=== PATIENT | female | born 1940 | race Caucasian/White ===

== ENCOUNTER 2017-01-04 12:37 | Emergency (ER) | payer MEDICARE, OTHER ==
[~2017-01-04 12:37] MED LIST: ACET500CAP PO; ATV.5 PO; C25 PO; EXELON3 PO; HUMALOG SC; KCL20UDL PO; LEVAQUIN5T PO; LEXAPRO20 PO; LIPITOR20 PO; MAX25 PO; MAXITOINT OPH; NEXIUM40 PO; NORCO1 TA1 PO; NYS500UDL PO; PROVENTSOL INH; REGL PO
[2017-04-06] MEDS ORDERED: NORCO1 TA1 PO (10:03)
[2017-04-06] MEDS ORDERED: CELEXA10 PO (10:03)
[2017-04-06] MEDS ORDERED: REGL PO (10:04)
[2017-04-06] MEDS ORDERED: PRILO PO (10:04)
[2017-04-06] MEDS ORDERED: FLEXERIL5 MG PO (10:05)
[2017-04-06] MEDS ORDERED: BISR PR (10:05)
[2017-04-06] MEDS ORDERED: MOMUD PO (10:06)
[2017-04-06] MEDS ORDERED: GENASYME40 MG/0.6 PO (10:07)
== END 2017-01-04 14:51 | disposition home or self-care (01) ==
LOC: ER 12:37
DX: Z43.1 Encounter for attention to gastrostomy (principal); I10 Essential (primary) hypertension; Z86.73 Personal history of transient ischemic attack (TIA), and cerebral infarction without residual deficits; F32.9 Major depressive disorder, single episode, unspecified; E11.9 Type 2 diabetes mellitus without complications; Z88.2 Allergy status to sulfonamides; Z79.899 Other long term (current) drug therapy; Z79.4 Long term (current) use of insulin
CPT/HCPCS: 49465; 99283

== ENCOUNTER 2017-01-20 16:08 | Inpatient (IN) | payer MEDICARE, OTHER ==
--- NOTE | ~2017-01-20 | HP ---
History And Physical [id number] [place]. [address] NAME: NELIDA COSME : 38 STATUS : ADM IN [facility]#: [id number] AGE: 76 ADM/REG DATE : 01/20/17 MR#: [id number] REPORT SERV DATE: 01/21/17 DICTATED BY: LOREN CHRISTIE DATE: 01/20/17 REPORT STATUS : Draft TRANSCRIBED BY: SHAMAR DATE: 01/20/17 DATE OF ADMISSION: 01/20/2017 CHIEF COMPLAINT: Pneumonia. HISTORY OF PRESENT ILLNESS: The patient is a 76-year-old female, longterm resident from [facility] secondary to prior history of stroke with additional history of atrial fibrillation on anticoagulation, diabetes insulin dependent, CVA history with right-sided hemiparesis, required feeding tube, COPD, dyslipidemia, hypertension, breast cancer history, nonvocal status who is brought in after concern for possible pneumonia and progressive worsening of recent pneumonia, possible aspiration, recent worsening pneumonia. The patient has been apparently getting progressively worse over last three to four days with intermittent difficulty with respirations that initially was mild but quite severe at this point, as the patient was tachypneic in the 40s, heart rate in the 100 plus and was fairly unresponsive. The patient has not expressed any pain or difficulty or discomfort but does have grimacing components with obvious shortness of breath. No reported nausea or vomiting, tolerating tube feeds. No fevers have been reported either but has had progressive weakness and decline in functional status. There is no worsening or relieving symptoms except after being placed on BiPAP, the patient appears to be improving mental status. REVIEW OF SYSTEMS: Unable to obtain due to mental status. PAST MEDICAL HISTORY: Obtained from records of insulin-dependent diabetes, atrial fibrillation on anticoagulation, coronary disease with ND, hypertension, hyperlipidemia, COPD, breast cancer, CVA with right-sided hemiparesis, feeding tube following multiple CVAs, longterm dependent, and essentially nonvocal. SOCIAL HISTORY: No reported history of smoking, alcohol, or illicits. Lives at longterm. FAMILY HISTORY: No reported diabetes or hypertension currently. SURGICAL HISTORY: PEG tube placement, prior stents. ALLERGIES: SULFA. HOME MEDICATIONS: Tylenol, Duo-nebs, Lipitor, baclofen, Pulmicort, Rocephin, vitamin D, Maxitrol, Lexapro, Nexium, Ferrex, Clyde, Ativan, Reglan, potassium, Exelon, Maxzide, lidocaine, Biotene, and Coumadin. PHYSICAL EXAMINATION: VITAL SIGNS: The patient's blood pressure 126/68, temperature 98.4, initial pulse 115 down to 78, respirations 38, 40 down to 27, O2 saturations 91% on 15 L currently on BiPAP, maintaining 100%. GENERAL: Elderly frail. History And Physical [address] [address] NAME: NELIDA COSME : 38 STATUS : ADM IN [facility]#: [id number] AGE: 76 ADM/REG DATE : 01/20/17 MR#: [id number] REPORT SERV DATE: 01/21/17 DICTATED BY: LOREN CHRISTIE DATE: 01/20/17 REPORT STATUS : Draft TRANSCRIBED BY: SHAMAR DATE: 01/20/17 EYES: No scleral icterus. ENT: Dry mucous membranes. BiPAP in place. No JVD. RESPIRATORY: Polyphonic breath sounds with decreased lower lung jean-baptiste and rhonchi bilaterally. CV: Regular rate currently. No rubs, no pedal edema. GI: Soft, nontender. Does have G-tube placement. : Deferred. MUSCULOSKELETAL: Does have random leg movements but nonpurposeful at this time due to mental status. SKIN: Warm and dry. Mild tenting. Does have mottling of knees. LYMPH: No cervical lymphadenopathy. HEME: No bleeding or bruising grossly. NEUROLOGIC: Nonverbal, right-sided central paraplegia and lethargic. PSYCH: Unable to assess secondary to mental status changes. DATA: BNP 94.7, WBC count 16.5, H and H 11.8 and 37.9 with MCV 102.4, platelets 397, INR 3.4. Hepatic function panel; sodium 145, potassium 5.3, chloride 104, bicarb 39, BUN creatinine 56 and 1.08, glucose 127, magnesium 3.2, alkaline phosphatase 707, AST ALT 521 and 639, troponin 0.05. Total bilirubin 0.4. Portable chest; stable moderate CHF with pleural effusions and bibasilar consolidation. ABG; pH 7.29, pCO2 of 80, pO2 of 145, bicarb 37.7. EKG; normal sinus rhythm, rate of 87, QTc 415. Again medications reviewed. ASSESSMENT AND PLAN: 1. Bilateral pneumonia. 2. Hypoxic hypercapnic respiratory failure. 3. Atrial fibrillation. 4. Hypertension. 5. CVA with non vocal and bed-bound state chronically. 6. Diabetes type 2. 7. Shock liver. 8. Severe sepsis. 9. Azotemia. 10.DNR status. PLAN: 1. For bilateral pneumonia, has been on Rocephin but clinically continues to decline, possible aspiration component, has been given vanc and Zosyn in the emergency room. We will change to vanc and cefepime per protocol, does additionally have shock liver with tachycardia, tachypnea, SOFA score is approximately 6 with estimated approximate mortality of 33%. Guarded prognosis discussed with family. 2. Hypoxic hypercapnic respiratory failure. BiPAP 4 on 4 off, as needed. Treat History And Physical [address] [address] NAME: NELIDA COSME : 38 STATUS : ADM IN [facility]#: [id number] AGE: 76 ADM/REG DATE : 01/20/17 MR#: [id number] REPORT SERV DATE: 01/21/17 DICTATED BY: LOREN CHRISTIE DATE: 01/20/17 REPORT STATUS : Draft TRANSCRIBED BY: SHAMAR DATE: 01/20/17 underlying pneumonia. Hold tube feeds at this time. Reassess in a.m. for restarting tube feeds. Possible aspiration component. 3. Atrial fibrillation. Monitor, currently in sinus rhythm. 4. Hypertension. Hold medications in the setting of sepsis. 5. CVA history. Nonverbal, bed-bound per floor protocol for barrier protection. 6. Diabetes type 2. Sliding scale insulin. 7. Shock liver. Hold hepatotoxins, treat severe sepsis. 8. Severe sepsis. IV fluids. IV antibiotics. Monitor closely with possible edema on chest x-ray. However, BNP within normal limits. No history of CHF. 9. Azotemia. IV fluids gently. Questions and guarded prognosis discussed with family. The patient has advance directive confirmed DNR, also confirmed with at bedside. DDN/MODL Loren Christie MD / [id number] CC: Dustin Cummings MD
--- NOTE | ~2017-01-20 | DS ---
Discharge Summary [id number] [place]. [address] NAME: NELIDA COSME : 38 STATUS : DIS IN PAT#: [id number] AGE: 76 ADM/REG DATE : 01/20/17 MR#: [id number] REPORT SERV DATE: 01/27/17 DICTATED BY: YOLA QUIJANO DATE: 01/26/17 REPORT STATUS : Draft TRANSCRIBED BY: SHAMAR DATE: 01/26/17 ADMISSION DATE: 01/20/2017 DISCHARGE DATE: 01/26/2017 DISCHARGE DIAGNOSES: 1. Healthcare associated pneumonia. 2. Chronic atrial fibrillation, on chronic anticoagulation with Coumadin. 3. Chronic hypoxic and hypercapnic respiratory failure. 4. History of cerebrovascular accident with residual dysphagia, aphasia, dementia, and right-sided hemiparesis. 5. History of tube feed dependent. 6. Code status, DNR. 7. History of hypertension. 8. History of chronic obstructive pulmonary disease. 9. History of breast cancer. 10.Severe sepsis. DISCHARGE CONDITION: Stable. HISTORY OF PRESENT ILLNESS: Please, for detailed HPI, make reference to Dr. Phil Ibanez's dictation on 01/21/2017. In brief, this is a 76-year-old female, who presented from [facility] to the hospital with complaints of worsening shortness of breath secondary to possible recent worsening pneumonia. At baseline, the patient was not able to give any detailed history due to aphasia secondary to sequelae of remote CVA. HOSPITAL COURSE: 1. Severe sepsis secondary to healthcare-associated pneumonia. On presentation, the [place] [address]. Chest x-ray shows bilateral consolidation. Respiratory rate was in the 20s. The patient was placed on nasal cannula oxygen. Blood cultures were taken. The patient was started on empiric broad-spectrum antibiotics with vancomycin and cefepime. There was also concern for possible aspiration as a contributing factor to the patient's worsening pneumonia. Hence, Flagyl was initially added to the patient's medication. The patient's WBC trended down back to within baseline. IV antibiotics were deescalated. Blood cultures showed no growth. The patient was transitioned from IV broad-spectrum antibiotics to p.o. antibiotics at the time of discharge. The patient was advised to complete a total of 10 days therapy of antibiotics treatment. The patient was discharged home on levofloxacin 750 mg one p.o. daily for additional four days. The patient was advised to continue to follow up at the halfway PCP. 2. Chronic hypoxic respiratory failure by history. The patient visually requires BiPAP intermittently at halfway. The patient's oxygen requirement during the course of admission remained stable. The patient was advised to continue intermittent BiPAP treatment at halfway and continue followup. 3. Chronic atrial fibrillation, on chronic anticoagulation with warfarin. The patient's heart rate remains controlled throughout the course of this admission. Her INR on presentation was noted to be supratherapeutic at 3.4. Coumadin was transiently held. Discharge Summary [id number] [place]. [address] NAME: NELIDA COSME : 38 STATUS : DIS IN PAT#: [id number] AGE: 76 ADM/REG DATE : 01/20/17 MR#: [id number] REPORT SERV DATE: 01/27/17 DICTATED BY: YOLA QUIJANO DATE: 01/26/17 REPORT STATUS : Draft TRANSCRIBED BY: SHAMAR DATE: 01/26/17 The patient's INR trended down to 2.4. Coumadin was recommended. At the time of discharge, the patient's INR was within therapeutic range of 2.2. The patient was advised to continue Coumadin and follow up with PCP for INR monitoring. 4. PEG tube feed dependent. The patient's tube feed was changed from Jevity to Glucerna during the course of this admission. The patient tolerated Glucerna very well. The patient's blood sugar remained stable throughout the course of this admission. The patient was transitioned back to Jevity and was advised to continue Jevity as an outpatient. 5. History of CVA with residual aphasia and dysphagia. The patient was aphasic throughout the course of this admission. Aphasia was due to remote CVA, which is the patient's known baseline. The patient was advised to continue follow up with PCP. DISCHARGE MEDICATIONS: 1. Levofloxacin 750 mg p.o. daily for four days. 2. Lisinopril 20 mg p.o. daily. 3. Maxzide 25/37.5 one p.o. daily. 4. Lorazepam 0.25 mg per PEG tube p.r.n. 5. Reglan 5 mg/5 mL syrup every six hours p.r.n. 6. Nexium 40 mg p.o. daily. 7. Rivastigmine 3 mg via PEG tube daily. 8. Warfarin 3 mg p.o. daily. 9. Budesonide capsule 0.5 mg/2 mL one puff daily. 10.Baclofen 10 mg p.o. p.r.n. 11.Lipitor 20 mg via PEG tube daily. 12.DuoNeb one inhalation p.r.n. DISCHARGE CONDITION: Stable. DISCHARGE DISPOSITION: To [facility]. DISCHARGE ACTIVITIES: As tolerated. Greater than 35 minutes was used to prepare this patient's discharge, reconcile medication, and advise the patient on discharge plan and followup. IOO/MODL Yola Quijano MD / [id number] CC: MD BARBER Leroy
--- NOTE | ~2017-01-20 | IDS ---
Interim Discharge Summary [facility] [address] [place]. [address] NAME: NELIDA COSME : 38 STATUS : ADM IN [facility]#: [id number] AGE: 76 ADM/REG DATE : 01/20/17 MR#: [id number] REPORT SERV DATE: 01/24/17 DICTATED BY: JIA GRACE DATE: 01/24/17 REPORT STATUS : Draft TRANSCRIBED BY: SHAMAR DATE: 01/24/17 ADMISSION DATE: 01/20/2017 DISCHARGE DATE: Date that my colleague will be taking over this patient is 01/25/2017. CONDITION: Condition of the patient is stable. CODE STATUS: This patient is a DNR. DIAGNOSES: So far on this patient include the followin. HCAP or healthcare-associated pneumonia and/or aspiration pneumonia - the patient is on IV cefepime, IV Flagyl and vancomycin and today is day #5 and patient is improving. 2. Chronic atrial fibrillation - the patient is therapeutic on Coumadin as her INR today is 2.8. 3. Chronic hypoxic and hypercapnic respiratory failure - this is stable with supplemental oxygen. 4. Old cerebrovascular accident with dysphagia, aphasia, dementia and right-sided weakness and the patient is bed bound. The patient is a resident of [facility]. The patient is tube feed dependent and has a PEG tube and getting fed with Glucerna via the PEG tube. 5. Her code status again is a DNR. BRIEF HOSPITAL COURSE: Ms. Cosme is a 76-year-old female patient, who was brought in by family from [facility] because of increasing difficulty breathing. She was admitted with a diagnosis of HCAP/aspiration pneumonia and started on IV antibiotics. She was given symptomatic and supportive care and all her regular medications were continued. With this, the patient has somewhat improved and her breathing is a little better. Over the last few days that I have had her, there has not been much change in mental status. The patient is slightly lethargic and mildly confused, but she is able to follow simple verbal commands. This is her baseline. As mentioned above, the patient is bed bound and tube feed dependent and this is all from an old CVA that left her with dysphagia, aphasia, and dementia. The plan on this patient is to transfer her back to [facility] when she improves and finishes her course of antibiotics. I would assume that she will need at least seven days of these IV antibiotics that she is getting. Family is very supportive and this patient will be taken over by my colleague on 01/25/2017. ASIA/SHAMAR Jia Grace M.D. Interim Discharge Summary [address] [address] NAME: NELIDA COSME : 38 STATUS : ADM IN [facility]#: [id number] AGE: 76 ADM/REG DATE : 01/20/17 MR#: [id number] REPORT SERV DATE: 01/24/17 DICTATED BY: JIA GRACE DATE: 01/24/17 REPORT STATUS : Draft TRANSCRIBED BY: SHAMAR DATE: 01/24/17 / [id number] CC: Norbert Pierre Cheryl
[2017-01-20 15:36] LABS: BE (BASE EXCESS) 8.3 MEQ/L (0 +/- 2.5); CARBOXYHEMOGLOBIN 1.8 % (0-3); HCO3 (ACTUAL BICARBONATE) 37.7 MEQ/L (23-27); HEMOBLOGIN CONTENT 12.6 G/DL (12-16); INSTRUMENT SERIAL # 8087; O2 CONTENT 17.5 VOL% (18-24); PCO2 (CO2 TENSION) 80 MMHG (35-45); PO2 (O2 TENSION) 145 MMHG (79-93); SAMPLE Arterial; pH 7.29 (7.37-7.43)
[2017-01-20 15:37] LABS: ALLENS TEST Pos; DEVICE NRB
[2017-01-20 15:45] LABS: BASOPHILS 0.2 %; BASOPHILS ABSOLUTE 0.03 10/3/uL (0.0-0.16); EOSINOPHILS 0 %; HEMATOCRIT 37.9 % (36.0-48.0); HEMOGLOBIN 11.8 g/dL (12.0-16.0); IMMATURE GRANULOCYTES ABSOLUTE 0.16 10/3/uL (0.0-0.11); LYMPHOCYTES 3.8 %; LYMPHOCYTES ABSOLUTE 0.63 10/3/uL (0.67-4.30); MEAN CORPUSCULAR HEMOGLOB 31.9 pg (26.0-34.0); MEAN PLATELET VOLUME 11.1 fL (9.2-13.0); MONOCYTES 6.4 %; MONOCYTES ABSOLUTE 1.05 10/3/uL (0.21-1.20); NEUTROPHILS 88.6 %; NEUTROPHILS ABSOLUTE 14.64 10/3/uL (2.02-8.40); PLATELET COUNT 397 10/3/uL (150-400); RBC DISTRIBUTION WIDTH 14.9 % (12.0-16.0)
[2017-01-20 15:46] LABS: ER CBC TAT 0 Hrs 08 Mins; MANUAL DIFF NO %; MEAN CORPUS HGB CONC 31.1 g/dL (32.0-36.0); MEAN CORPUSCULAR VOLUME 102.4 fL (80-100); WHITE BLOOD CELLS 16.5 10/3/uL (4.5-10.5)
[2017-01-20 15:49] LABS: INTERNATIONAL NORMAL RATI 3.4 UNITS (-); PROTIME (NOT ORD) 34.3 SEC (12.0-14.5)
[2017-01-20 15:50] LABS: PARTIAL THROMBO TIME 48.4 SEC (22.5-37.2)
[2017-01-20 15:57] LABS: CALCIUM, SERUM 8.6 MG/DL (8.5-10.4); CHLORIDE, SERUM 104 MMOL/L (96-112); CREATININE 1.08 MG/DL (0.55-1.02); DIRECT BILIRUBIN 0.3 MG/DL (0.0-0.4); GFR AFRICAN AMERICAN 57 ML/MIN (>=60); GFR NON AFRICAN AMERICAN 49 ML/MIN (>=60); INDIRECT BILIRUBIN(NOT ORDER) 0.1 MG/DL (0.1-0.9); SGOT(AST) 521 U/L (5-40); SGPT(ALT) 639 U/L (5-65); SODIUM, SERUM 145 MMOL/L (135-148); TOTAL BILIRUBIN 0.4 MG/DL (0-1.2)
[2017-01-20 15:58] LABS: ALBUMIN 1.7 G/DL (3.5-5.0); ALKALINE PHOSPHATASE 707 U/L (45-117); BUN (BLOOD UREA NITROGEN) 56 MG/DL (6-23); CHEST PAIN PROFILE TAT 0 Hrs 20 Mins; CO2 (CARBON DIOXIDE) 39 MMOL/L (24-34); GLUCOSE, SERUM 127 MG/DL (60-99); POTASSIUM, SERUM 5.3 MMOL/L (3.5-5.3); TROPONIN I 0.05 NG/ML (<0.05)
[2017-01-20 16:06] LABS: BAND NEUTROPHILS 16 %; ER DIFF TAT 0 Hrs 28 Mins; LYMPHOCYTES 3 %; MACROCYTES 1+ (5-10/OIF) (0-5/OIF); MONOCYTES 7 %; MONOCYTES ABSOLUTE (CALC) 1.16 10/3/uL (0.21-1.20); NEUTROPHILS ABSOLUTE (CALC) 14.85 10/3/uL (2.02-8.40); PLATELET ESTIMATE ADQ (ADEQUATE); SEGMENTED NEUTROPHIL (0) 74 %; TOTAL NUCLEATED CELLS 100
[2017-01-20] MEDS ORDERED: LIPITOR20 PEG (16:52)
[2017-01-20] MEDS ORDERED: PULRESP.5 INH (16:53)
[2017-01-20] MEDS ORDERED: ROCEPH IM (16:54)
[2017-01-20] MEDS ORDERED: LEXAPRO20 PEG (16:55)
[2017-01-20] MEDS ORDERED: FERREX 150150 MG PEG (16:55)
[2017-01-20] MEDS ORDERED: LIDOCAINE IM (16:55)
[2017-01-20] MEDS ORDERED: NORCO1 TA2 PEG (16:55)
[2017-01-20] MEDS ORDERED: DUONEB INH ×2 (16:56→17:02)
[2017-01-20] MEDS ORDERED: REGL PEG (16:56)
[2017-01-20] MEDS ORDERED: ATV.5 PEG (16:56)
[2017-01-20] MEDS ORDERED: NEXIUM40 PEG (16:56)
[2017-01-20] MEDS ORDERED: MAX25 PEG (16:57)
[2017-01-20] MEDS ORDERED: EXELON3 PEG (16:57)
[2017-01-20] MEDS ORDERED: KCL20UDL PEG (16:57)
[2017-01-20] MEDS ORDERED: MAXIMUM D3 PEG (16:58)
[2017-01-20] MEDS ORDERED: C1 PO (16:58)
[2017-01-20] MEDS ORDERED: ACET500CAP PEG (17:00)
[2017-01-20] MEDS ORDERED: LIOR10 PEG (17:01)
[2017-01-20] MEDS ORDERED: BIOTENE SPRAY PO (17:01)
[2017-01-20] MEDS ORDERED: BISR (17:01)
[2017-01-20] MEDS ORDERED: ATV.5 PO (17:02)
[2017-01-20] MEDS ORDERED: MAXITOINT OPH (17:03)
[2017-01-20 22:01] LABS: A/G RATIO 0.3 (0.7-1.9); ALBUMIN 1.6 G/DL (3.5-5.0); ALKALINE PHOSPHATASE 591 U/L (45-117); BUN (BLOOD UREA NITROGEN) 57 MG/DL (6-23); CALCIUM, SERUM 8.6 MG/DL (8.5-10.4); CHLORIDE, SERUM 108 MMOL/L (96-112); CO2 (CARBON DIOXIDE) 36 MMOL/L (24-34); CREATININE 0.94 MG/DL (0.55-1.02); GFR AFRICAN AMERICAN 68 ML/MIN (>=60); GFR NON AFRICAN AMERICAN 59 ML/MIN (>=60); GLOBULIN 5.4 G/DL (2.5-4.1); GLUCOSE, SERUM 113 MG/DL (60-99); POTASSIUM, SERUM 4.9 MMOL/L (3.5-5.3); SGOT(AST) 357 U/L (5-40); SGPT(ALT) 528 U/L (5-65); SODIUM, SERUM 149 MMOL/L (135-148); TOTAL BILIRUBIN 0.4 MG/DL (0-1.2)
[2017-01-20 22:23] LABS: PROCALCITONIN 1.44 ng/mL (<0.5)
[2017-01-21 00:51] LABS: LACTATE 0.9 MMOL/L (0.3-2.4)
[2017-01-21 04:29] LABS: BE (BASE EXCESS) 12.1 MEQ/L (0 +/- 2.5); BIPAP 15/5 cm.H2O; CARBOXYHEMOGLOBIN 0.6 % (0-3); HEMOBLOGIN CONTENT 10.6 G/DL (12-16); INSTRUMENT SERIAL # 8083; METHEMOGLOBIN 0.3 % (0-3); O2 CONTENT 14.7 VOL% (18-24); OPERATOR ID 30013; PCO2 (CO2 TENSION) 57 MMHG (35-45); PO2 (O2 TENSION) 107 MMHG (79-93); SAMPLE Arterial; pH 7.44 (7.37-7.43)
[2017-01-21 06:05] LABS: INTERNATIONAL NORMAL RATI 3.5 UNITS (-); PROTIME (NOT ORD) 34.7 SEC (12.0-14.5)
[2017-01-21 06:16] LABS: A/G RATIO 0.3 (0.7-1.9); ALBUMIN 1.5 G/DL (3.5-5.0); CALCIUM, SERUM 8.3 MG/DL (8.5-10.4); CHLORIDE, SERUM 107 MMOL/L (96-112); CO2 (CARBON DIOXIDE) 35 MMOL/L (24-34); CREATININE 0.83 MG/DL (0.55-1.02); GFR AFRICAN AMERICAN 79 ML/MIN (>=60); GFR NON AFRICAN AMERICAN 68 ML/MIN (>=60); GLOBULIN 5.3 G/DL (2.5-4.1); GLUCOSE, SERUM 103 MG/DL (60-99); POTASSIUM, SERUM 4.1 MMOL/L (3.5-5.3); SGOT(AST) 279 U/L (5-40); SGPT(ALT) 432 U/L (5-65); SODIUM, SERUM 146 MMOL/L (135-148); TOTAL BILIRUBIN 0.5 MG/DL (0-1.2); TOTAL PROTEIN 6.8 G/DL (6.0-8.5)
[2017-01-21 06:17] LABS: ALKALINE PHOSPHATASE 527 U/L (45-117); BUN (BLOOD UREA NITROGEN) 53 MG/DL (6-23)
[2017-01-21 06:19] LABS: BASOPHILS 0.3 %; BASOPHILS ABSOLUTE 0.04 10/3/uL (0.0-0.16); EOSINOPHILS 0.1 %; EOSINOPHILS ABSOLUTE 0.02 10/3/uL (0.0-0.53); HEMOGLOBIN 10.4 g/dL (12.0-16.0); IMMATURE GRANULOCYTES 0.6 %; IMMATURE GRANULOCYTES ABSOLUTE 0.08 10/3/uL (0.0-0.11); LYMPHOCYTES 4.4 %; LYMPHOCYTES ABSOLUTE 0.63 10/3/uL (0.67-4.30); MEAN CORPUS HGB CONC 30.9 g/dL (32.0-36.0); MEAN CORPUSCULAR VOLUME 100.6 fL (80-100); MEAN PLATELET VOLUME 11.1 fL (9.2-13.0); MONOCYTES 6.3 %; MONOCYTES ABSOLUTE 0.89 10/3/uL (0.21-1.20); NEUTROPHILS 88.3 %; NEUTROPHILS ABSOLUTE 12.58 10/3/uL (2.02-8.40); PLATELET COUNT 330 10/3/uL (150-400); RBC DISTRIBUTION WIDTH 14.9 % (12.0-16.0); RED CELL COUNT 3.35 10/6/uL (4.0-5.6); WHITE BLOOD CELLS 14.2 10/3/uL (4.5-10.5)
[2017-01-21 06:24] LABS: HEMATOCRIT 33.7 % (36.0-48.0); MANUAL DIFF NO %
[2017-01-21 08:40] LABS: TROPONIN I 0.02 NG/ML (<0.05)
[2017-01-21 12:06] LABS: A/G RATIO 0.3 (0.7-1.9); ALBUMIN 1.5 G/DL (3.5-5.0); BUN (BLOOD UREA NITROGEN) 50 MG/DL (6-23); CALCIUM, SERUM 8.3 MG/DL (8.5-10.4); CHLORIDE, SERUM 109 MMOL/L (96-112); CO2 (CARBON DIOXIDE) 35 MMOL/L (24-34); CREATININE 0.76 MG/DL (0.55-1.02); GFR AFRICAN AMERICAN 88 ML/MIN (>=60); GFR NON AFRICAN AMERICAN 76 ML/MIN (>=60); GLUCOSE, SERUM 108 MG/DL (60-99); PREALBUMIN 4.7 MG/DL (17.0-43.0); SGOT(AST) 240 U/L (5-40); SGPT(ALT) 452 U/L (5-65); SODIUM, SERUM 150 MMOL/L (135-148); TOTAL BILIRUBIN 0.4 MG/DL (0-1.2); TOTAL PROTEIN 6.5 G/DL (6.0-8.5)
[2017-01-21 12:07] LABS: ALKALINE PHOSPHATASE 509 U/L (45-117); PHOSPHORUS, SERUM 2.2 MG/DL (2.5-4.5)
[2017-01-21 12:33] LABS: ASCORBIC ACID (UR NOT ORDER) 40 (NEG); BILIRUBIN, URINE NEGATIVE (NEG); KETONE, URINE NEGATIVE (NEG); LEUKOCYTE ESTERASE(NOT OR TRACE (NEG); WBC (NOT ORDERED) (RFLEX) 2 (0-5)
[2017-01-22 03:12] LABS: ALLENS TEST Pos; BE (BASE EXCESS) 4.8 MEQ/L (0 +/- 2.5); CARBOXYHEMOGLOBIN 1.4 % (0-3); DEVICE NC; HCO3 (ACTUAL BICARBONATE) 29.4 MEQ/L (23-27); HEMOBLOGIN CONTENT 10.3 G/DL (12-16); INSTRUMENT SERIAL # 8087; METHEMOGLOBIN 0.3 % (0-3); O2 CONTENT 13.9 VOL% (18-24); OPERATOR ID 17537; PCO2 (CO2 TENSION) 43 MMHG (35-45); PO2 (O2 TENSION) 86 MMHG (79-93); SAMPLE Arterial; pH 7.45 (7.37-7.43)
[2017-01-22 05:47] LABS: BASOPHILS 0.1 %; BASOPHILS ABSOLUTE 0.02 10/3/uL (0.0-0.16); EOSINOPHILS 0.8 %; EOSINOPHILS ABSOLUTE 0.12 10/3/uL (0.0-0.53); HEMOGLOBIN 9.1 g/dL (12.0-16.0); IMMATURE GRANULOCYTES 0.6 %; LYMPHOCYTES 5.6 %; LYMPHOCYTES ABSOLUTE 0.86 10/3/uL (0.67-4.30); MEAN CORPUSCULAR HEMOGLOB 31.8 pg (26.0-34.0); MEAN CORPUSCULAR VOLUME 99.3 fL (80-100); MEAN PLATELET VOLUME 10.8 fL (9.2-13.0); MONOCYTES 4.3 %; MONOCYTES ABSOLUTE 0.66 10/3/uL (0.21-1.20); NEUTROPHILS 88.6 %; NEUTROPHILS ABSOLUTE 13.64 10/3/uL (2.02-8.40); PLATELET COUNT 337 10/3/uL (150-400); RBC DISTRIBUTION WIDTH 14.7 % (12.0-16.0); RED CELL COUNT 2.86 10/6/uL (4.0-5.6); WHITE BLOOD CELLS 15.4 10/3/uL (4.5-10.5)
[2017-01-22 05:52] LABS: HEMATOCRIT 28.4 % (36.0-48.0); MANUAL DIFF NO %
[2017-01-22 05:55] LABS: CALCIUM, SERUM 7.9 MG/DL (8.5-10.4); CHLORIDE, SERUM 110 MMOL/L (96-112); CO2 (CARBON DIOXIDE) 33 MMOL/L (24-34); CREATININE 0.69 MG/DL (0.55-1.02); GFR AFRICAN AMERICAN 97 ML/MIN (>=60); GFR NON AFRICAN AMERICAN 84 ML/MIN (>=60); GLUCOSE, SERUM 114 MG/DL (60-99); POTASSIUM, SERUM 3.5 MMOL/L (3.5-5.3); SODIUM, SERUM 147 MMOL/L (135-148)
[2017-01-22 05:56] LABS: BUN (BLOOD UREA NITROGEN) 39 MG/DL (6-23)
[2017-01-22 06:15] LABS: INTERNATIONAL NORMAL RATI 3.9 UNITS (-); PROTIME (NOT ORD) 37.8 SEC (12.0-14.5)
[2017-01-23 08:39] LABS: HEMATOCRIT 31.4 % (36.0-48.0); HEMOGLOBIN 9.9 g/dL (12.0-16.0); MEAN CORPUS HGB CONC 31.5 g/dL (32.0-36.0); MEAN CORPUSCULAR HEMOGLOB 31.1 pg (26.0-34.0); MEAN CORPUSCULAR VOLUME 98.7 fL (80-100); MEAN PLATELET VOLUME 11.1 fL (9.2-13.0); PLATELET COUNT 369 10/3/uL (150-400); RBC DISTRIBUTION WIDTH 14.7 % (12.0-16.0); RED CELL COUNT 3.18 10/6/uL (4.0-5.6); WHITE BLOOD CELLS 15.6 10/3/uL (4.5-10.5)
[2017-01-23 08:40] LABS: MANUAL DIFF YES %
[2017-01-23 08:47] LABS: INTERNATIONAL NORMAL RATI 2.7 UNITS (-)
[2017-01-23 08:49] LABS: PROTIME (NOT ORD) 28.8 SEC (12.0-14.5)
[2017-01-23 08:50] LABS: BUN (BLOOD UREA NITROGEN) 30 MG/DL (6-23); CALCIUM, SERUM 7.9 MG/DL (8.5-10.4); CHLORIDE, SERUM 110 MMOL/L (96-112); CO2 (CARBON DIOXIDE) 34 MMOL/L (24-34); CREATININE 0.68 MG/DL (0.55-1.02); GFR AFRICAN AMERICAN 98 ML/MIN (>=60); GFR NON AFRICAN AMERICAN 84 ML/MIN (>=60); GLUCOSE, SERUM 120 MG/DL (60-99); POTASSIUM, SERUM 3.9 MMOL/L (3.5-5.3); SODIUM, SERUM 146 MMOL/L (135-148)
[2017-01-23 09:28] LABS: BAND NEUTROPHILS 5 %; EOSINOPHILS 3 %; EOSINOPHILS ABSOLUTE (CALC) 0.47 10/3/uL (0.0-0.53); IMMATURE GRANS ABSOLUTE (CALC) 0.47 10/3/uL (0.0-0.11); LYMPHOCYTES 2 %; LYMPHOCYTES ABSOLUTE (CALC) 0.31 10/3/uL (0.67-4.30); METAMYELOCYTES 3 %; MONOCYTES 4 %; MONOCYTES ABSOLUTE (CALC) 0.62 10/3/uL (0.21-1.20); NEUTROPHILS ABSOLUTE (CALC) 13.73 10/3/uL (2.02-8.40); PLATELET ESTIMATE ADQ (ADEQUATE); RBC MORPHOLOGY NORM (NORMAL); SEGMENTED NEUTROPHIL (0) 83 %; TOTAL NUCLEATED CELLS 100
[2017-01-24 04:34] LABS: HEMATOCRIT 28.7 % (36.0-48.0); HEMOGLOBIN 9.4 g/dL (12.0-16.0); MANUAL DIFF YES %; MEAN CORPUS HGB CONC 32.8 g/dL (32.0-36.0); MEAN CORPUSCULAR HEMOGLOB 31.8 pg (26.0-34.0); PLATELET COUNT 364 10/3/uL (150-400); RBC DISTRIBUTION WIDTH 14.8 % (12.0-16.0); RED CELL COUNT 2.96 10/6/uL (4.0-5.6); WHITE BLOOD CELLS 13.1 10/3/uL (4.5-10.5)
[2017-01-24 04:55] LABS: BUN (BLOOD UREA NITROGEN) 32 MG/DL (6-23); CALCIUM, SERUM 8.3 MG/DL (8.5-10.4); CHLORIDE, SERUM 108 MMOL/L (96-112); CO2 (CARBON DIOXIDE) 35 MMOL/L (24-34); CREATININE 0.72 MG/DL (0.55-1.02); GFR AFRICAN AMERICAN 94 ML/MIN (>=60); GFR NON AFRICAN AMERICAN 81 ML/MIN (>=60); GLUCOSE, SERUM 123 MG/DL (60-99); POTASSIUM, SERUM 3.8 MMOL/L (3.5-5.3); SODIUM, SERUM 148 MMOL/L (135-148)
[2017-01-24 05:19] LABS: INTERNATIONAL NORMAL RATI 2.8 UNITS (-); PROTIME (NOT ORD) 28.9 SEC (12.0-14.5)
[2017-01-24 06:12] LABS: BAND NEUTROPHILS 2 %; EOSINOPHILS 4 %; EOSINOPHILS ABSOLUTE (CALC) 0.52 10/3/uL (0.0-0.53); IMMATURE GRANS ABSOLUTE (CALC) 0.13 10/3/uL (0.0-0.11); LYMPHOCYTES 8 %; LYMPHOCYTES ABSOLUTE (CALC) 1.05 10/3/uL (0.67-4.30); METAMYELOCYTES 1 %; MONOCYTES 5 %; MONOCYTES ABSOLUTE (CALC) 0.66 10/3/uL (0.21-1.20); NEUTROPHILS ABSOLUTE (CALC) 10.74 10/3/uL (2.02-8.40); PLATELET ESTIMATE ADQ (ADEQUATE); RBC MORPHOLOGY NORM (NORMAL); SEGMENTED NEUTROPHIL (0) 80 %; TOTAL NUCLEATED CELLS 100
[2017-01-25 04:26] LABS: HEMATOCRIT 28.4 % (36.0-48.0); MANUAL DIFF YES %; MEAN CORPUS HGB CONC 31.7 g/dL (32.0-36.0); MEAN CORPUSCULAR HEMOGLOB 31.6 pg (26.0-34.0); MEAN CORPUSCULAR VOLUME 99.6 fL (80-100); MEAN PLATELET VOLUME 10.7 fL (9.2-13.0); PLATELET COUNT 393 10/3/uL (150-400); RBC DISTRIBUTION WIDTH 14.7 % (12.0-16.0); RED CELL COUNT 2.85 10/6/uL (4.0-5.6); WHITE BLOOD CELLS 13.1 10/3/uL (4.5-10.5)
[2017-01-25 04:32] LABS: INTERNATIONAL NORMAL RATI 2.4 UNITS (-); PROTIME (NOT ORD) 25.7 SEC (12.0-14.5)
[2017-01-25 04:40] LABS: ALLENS TEST Pos; BE (BASE EXCESS) 9.7 MEQ/L (0 +/- 2.5); CARBOXYHEMOGLOBIN 0.5 % (0-3); DEVICE HFNC; HCO3 (ACTUAL BICARBONATE) 34.3 MEQ/L (23-27); HEMOBLOGIN CONTENT 10.3 G/DL (12-16); INSTRUMENT SERIAL # 35151; METHEMOGLOBIN 0.6 % (0-3); O2 CONTENT 13.7 VOL% (18-24); PCO2 (CO2 TENSION) 47 MMHG (35-45); PO2 (O2 TENSION) 74 MMHG (79-93); SAMPLE Arterial; pH 7.48 (7.37-7.43)
[2017-01-25 04:42] LABS: BUN (BLOOD UREA NITROGEN) 32 MG/DL (6-23); CALCIUM, SERUM 8.3 MG/DL (8.5-10.4); CHLORIDE, SERUM 105 MMOL/L (96-112); CO2 (CARBON DIOXIDE) 38 MMOL/L (24-34); CREATININE 0.71 MG/DL (0.55-1.02); GFR AFRICAN AMERICAN 95 ML/MIN (>=60); GFR NON AFRICAN AMERICAN 82 ML/MIN (>=60); GLUCOSE, SERUM 117 MG/DL (60-99); POTASSIUM, SERUM 3.9 MMOL/L (3.5-5.3); SODIUM, SERUM 145 MMOL/L (135-148)
[2017-01-25 04:58] LABS: BAND NEUTROPHILS 4 %; EOSINOPHILS ABSOLUTE (CALC) 0.26 10/3/uL (0.0-0.53); IMMATURE GRANS ABSOLUTE (CALC) 0.13 10/3/uL (0.0-0.11); LYMPHOCYTES ABSOLUTE (CALC) 0.26 10/3/uL (0.67-4.30); METAMYELOCYTES 1 %; MONOCYTES ABSOLUTE (CALC) 0.26 10/3/uL (0.21-1.20); NEUTROPHILS ABSOLUTE (CALC) 12.18 10/3/uL (2.02-8.40); TOTAL NUCLEATED CELLS 100
[2017-01-25 04:59] LABS: EOSINOPHILS 4 %; LYMPHOCYTES 6 %; MONOCYTES 4 %; SEGMENTED NEUTROPHIL (0) 81 %
[2017-01-25 05:01] LABS: ANISOCYTOSIS 1+ (5-10/OIF) (0-5/OIF); PLATELET ESTIMATE ADQ (ADEQUATE)
[2017-01-26 06:21] LABS: INTERNATIONAL NORMAL RATI 2.2 UNITS (-); PROTIME (NOT ORD) 23.9 SEC (12.0-14.5)
[2017-01-26 06:24] LABS: HEMATOCRIT 30.1 % (36.0-48.0); HEMOGLOBIN 9.6 g/dL (12.0-16.0); MANUAL DIFF YES %; MEAN CORPUS HGB CONC 31.9 g/dL (32.0-36.0); MEAN CORPUSCULAR HEMOGLOB 31.8 pg (26.0-34.0); MEAN CORPUSCULAR VOLUME 99.7 fL (80-100); MEAN PLATELET VOLUME 11.2 fL (9.2-13.0); PLATELET COUNT 418 10/3/uL (150-400); RBC DISTRIBUTION WIDTH 14.8 % (12.0-16.0); RED CELL COUNT 3.02 10/6/uL (4.0-5.6); WHITE BLOOD CELLS 10.6 10/3/uL (4.5-10.5)
[2017-01-26 06:30] LABS: ALBUMIN 1.6 G/DL (3.5-5.0); BUN (BLOOD UREA NITROGEN) 31 MG/DL (6-23); CALCIUM, SERUM 8.7 MG/DL (8.5-10.4); CHLORIDE, SERUM 103 MMOL/L (96-112); CO2 (CARBON DIOXIDE) 36 MMOL/L (24-34); CREATININE 0.69 MG/DL (0.55-1.02); GFR AFRICAN AMERICAN 97 ML/MIN (>=60); GFR NON AFRICAN AMERICAN 84 ML/MIN (>=60); GLUCOSE, SERUM 124 MG/DL (60-99); PHOSPHORUS, SERUM 2.1 MG/DL (2.5-4.5); SODIUM, SERUM 144 MMOL/L (135-148)
[2017-01-26 06:47] LABS: BAND NEUTROPHILS 1 %; EOSINOPHILS 7 %; EOSINOPHILS ABSOLUTE (CALC) 0.74 10/3/uL (0.0-0.53); LYMPHOCYTES 9 %; LYMPHOCYTES ABSOLUTE (CALC) 1.59 10/3/uL (0.67-4.30); MONOCYTES 1 %; MONOCYTES ABSOLUTE (CALC) 0.11 10/3/uL (0.21-1.20); NEUTROPHILS ABSOLUTE (CALC) 8.16 10/3/uL (2.02-8.40); PLATELET ESTIMATE ADQ (ADEQUATE); RBC MORPHOLOGY NORM (NORMAL); SEGMENTED NEUTROPHIL (0) 81 %; TOTAL NUCLEATED CELLS 100
[2017-04-06] MEDS ORDERED: CELEXA10 PO (10:03)
[2017-04-06] MEDS ORDERED: NORCO1 TA1 PO (10:03)
[2017-04-06] MEDS ORDERED: REGL PO (10:04)
[2017-04-06] MEDS ORDERED: PRILO PO (10:04)
[2017-04-06] MEDS ORDERED: FLEXERIL5 MG PO (10:05)
[2017-04-06] MEDS ORDERED: BISR PR (10:05)
[2017-04-06] MEDS ORDERED: MOMUD PO (10:06)
[2017-04-06] MEDS ORDERED: GENASYME40 MG/0.6 PO (10:07)
== END 2017-01-26 17:29 | DRG 871 ==
LOC: ER 16:08 → 6NO 18:10
PROVIDERS: Emergency Medicine; Hospitalist; Internal Medicine; Student in an Organized Health Care Education/Training Program
PROC: 5A09357 Assistance with Respiratory Ventilation, Less than 24 Consecutive Hours, Continuous Positive Airway Pressure (ICD-10-PCS; principal; 2017-01-20)
DX: A41.9 Sepsis, unspecified organism (principal); J18.9 Pneumonia, unspecified organism; K72.00 Acute and subacute hepatic failure without coma; J96.21 Acute and chronic respiratory failure with hypoxia; J69.0 Pneumonitis due to inhalation of food and vomit; I48.2 Chronic atrial fibrillation; I69.351 Hemiplegia and hemiparesis following cerebral infarction affecting right dominant side; R13.10 Dysphagia, unspecified; F03.90 Unspecified dementia, unspecified severity, without behavioral disturbance, psychotic disturbance, mood disturbance, and anxiety; J96.22 Acute and chronic respiratory failure with hypercapnia; R65.20 Severe sepsis without septic shock; E11.9 Type 2 diabetes mellitus without complications; E78.5 Hyperlipidemia, unspecified; J44.9 Chronic obstructive pulmonary disease, unspecified; I48.91 Unspecified atrial fibrillation; I25.10 Atherosclerotic heart disease of native coronary artery without angina pectoris; I69.398 Other sequelae of cerebral infarction; I25.2 Old myocardial infarction; I69.991 Dysphagia following unspecified cerebrovascular disease; I69.920 Aphasia following unspecified cerebrovascular disease; Y95 Nosocomial condition; Z93.1 Gastrostomy status; Z66 Do not resuscitate; Z79.4 Long term (current) use of insulin; Z74.01 Bed confinement status; Z85.3 Personal history of malignant neoplasm of breast; Z79.01 Long term (current) use of anticoagulants
CPT/HCPCS: 36600; 71010; 80048; 80053; 80069; 80076; 80202; 81001; 82805; 82962; 83605; 83735; 83880; 84100; 84134; 84145; 84484; 85025; 85610; 85730; 87040; 87449; 93005; 94640; 94660; 97161-GP; 99291; A9270-GY; C9113; G8978-CN-GP; G8979-CN-GP; G8980-CN-GP; J0692; J1170; J3370